=== PATIENT | male | born 1945 | race Caucasian/White ===

== ENCOUNTER → 2019-06-24 | Outpatient (CLI) | payer OTHER ==
[~2019-06-24] MED LIST: ADULT LOW DOSE81 MG; ATENOLOL 50MG T50 M1; COUMADIN; FLEXERIL PO; IBUPROFEN 600600 M1 PO; LIPITOR20 MG; NORCO 5-325 TA1 EACH PO; ZESTORETIC 20-1 EAC1
== END ==
LOC: SJCVCIMAG 09:39
DX: I08.8 Other rheumatic multiple valve diseases (principal); I10 Essential (primary) hypertension; I48.21 Permanent atrial fibrillation; I77.810 Thoracic aortic ectasia; E78.00 Pure hypercholesterolemia, unspecified; F17.200 Nicotine dependence, unspecified, uncomplicated

== ENCOUNTER → 2019-12-30 | Outpatient (CLI) | payer OTHER | LOC: SJCVC 14:53 | PROVIDERS: ATTEND Internal Medicine Cardiovascular Disease | DX: R94.31 Abnormal electrocardiogram [ECG] [EKG] (principal); I48.21 Permanent atrial fibrillation; I10 Essential (primary) hypertension; E78.00 Pure hypercholesterolemia, unspecified; I77.810 Thoracic aortic ectasia; F17.210 Nicotine dependence, cigarettes, uncomplicated; Z79.899 Other long term (current) drug therapy ==

== ENCOUNTER → 2020-10-04 | Outpatient (CLI) | payer OTHER | LOC: SJCVC 09:27 | PROVIDERS: ATTEND Internal Medicine Cardiovascular Disease | DX: R94.31 Abnormal electrocardiogram [ECG] [EKG] (principal); I49.3 Ventricular premature depolarization; I45.10 Unspecified right bundle-branch block; I48.91 Unspecified atrial fibrillation; I48.21 Permanent atrial fibrillation; I10 Essential (primary) hypertension; E78.00 Pure hypercholesterolemia, unspecified; I77.810 Thoracic aortic ectasia; I34.0 Nonrheumatic mitral (valve) insufficiency; F17.210 Nicotine dependence, cigarettes, uncomplicated; Z79.01 Long term (current) use of anticoagulants; Z79.899 Other long term (current) drug therapy; Z82.49 Family history of ischemic heart disease and other diseases of the circulatory system ==